=== PATIENT | male | born 1955 | race Caucasian/White ===

== ENCOUNTER → 2021-09-12 12:03 | Outpatient (BNVA) | payer SELFPAY | PROVIDERS: PCP Internal Medicine | DX: Z20.822 Contact with and (suspected) exposure to COVID-19 (principal) | CPT/HCPCS: 36415; C9803 ==

== ENCOUNTER 2022-01-02 12:10 | Outpatient (REF) | payer OTHER, SELFPAY ==
--- NOTE | ~2022-01-02 | XR_ITS ---
EXAMINATION: XR LUMBOSACRAL SPINE CLINICAL INFORMATION: Radiculopathy COMPARISON: None TECHNIQUE: Three views of the lumbosacral spine. FINDINGS: Bone alignment is normal. No fracture or dislocation is seen. There may be a limbus variant or spondylosis superior endplate of the L4 vertebral body. Disc spaces are normal. There is lower lumbar spine facet arthritis. XR/XR lumbar spine 2-3V IMPRESSION: Lower lumbar spine facet arthritis.
== END 2022-01-02 12:11 | disposition home or self-care (01) ==
LOC: HO.XRAY 12:10
PROVIDERS: Visit Provider Physical Medicine & Rehabilitation
DX: M54.16 Radiculopathy, lumbar region (principal)
CPT/HCPCS: 72100

== ENCOUNTER 2022-01-05 15:10 | Outpatient (REF) | payer OTHER, SELFPAY ==
--- NOTE | ~2022-01-05 | MR_ITS ---
EXAMINATION: MR LUMBAR SPINE WITHOUT CONTRAST CLINICAL INFORMATION: 67-year-old with complaints of low back and left leg pain. Lumbar radiculopathy. COMPARISON: None TECHNIQUE: MRI of the lumbar spine was obtained using routine sequences without contrast. FINDINGS: CORONAL ALIGNMENT: Normal. SAGITTAL ALIGNMENT: 3 mm of grade 1 spondylolisthesis at L5-S1. Possible subtle pars defect on the right. Normal lumbar spine alignment throughout the remainder of the lumbar spine with normal lumbar lordotic curvature. LUMBOSACRAL JUNCTION: Normal. 5 nonrib-bearing lumbar-type vertebral bodies. VERTEBRAL BODIES: Normal height. Limbus vertebra noted at the anterosuperior corner of L4. DISC SPACES AND ENDPLATES: The intervertebral disc space heights are relatively well maintained. Mild multilevel disc desiccation noted with minor spondylosis at multiple levels. Endplates appear largely intact. SPINAL CANAL: No abnormal developmental findings. BONE MARROW: No significant marrow-replacing process or bone marrow edema. 2 cm benign vertebral hemangioma in the L1 vertebral body noted and a 1.5 cm benign vertebral hemangioma in the L5 vertebral body. Type II degenerative marrow signal changes along the superior endplate of S1 and in the anterosuperior corner of L5. Minor type II marrow signal changes noted along the endplates anteriorly at L1-L2 and T12-L1. CONUS MEDULLARIS: Terminates at L1. Morphology and signal is normal. INTRADURAL NERVE ROOTS: Within normal limits. L5-S1: Unroofing of the posterior disc margin consistent with mild grade 1 spondylolisthesis. Broad-based, shallow left paramedian to subarticular/foraminal disc protrusion with annular fissuring noted with slight flattening of the dural sac asymmetric to the left without definite neural impingement. [id number]-[id number] facet arthropathy noted left more than right with a small left-sided facet joint effusion without significant spinal canal stenosis. Mild craniocaudal neural foraminal narrowing noted on the left without neural impingement. Possible subtle pars defect on the right. L4-L5: Diffuse disc bulging is noted with subtle bilateral posterolateral annular fissuring and mild flattening the ventral dural sac, with [id number]-mh-flatdigm ligamentum flavum thickening and [id number] bilateral facet arthropathy with a prominent dorsal epidural fat pad. No significant central spinal canal stenosis. Mild left subarticular recess narrowing noted and moderate left-sided neural foraminal stenosis, with facet spurring abutting the exiting left L4 nerve root. There is mild right-sided neural foraminal stenosis. L3-L4: Mild disc bulging is noted, with mild flattening of the ventral dural sac. [id number]-ib-mrhiuwiz facet arthropathy noted right more than left with a degenerative subchondral cyst within the superior articulating facet of the right facet joint and a prominent dorsal epidural fat pad without significant spinal canal stenosis. No significant neural foraminal stenosis. L2-L3: Mild posterolateral disc protrusions bilaterally encroaching on the inferior neural foramina with underlying minor disc bulging and slight flattening the ventral dural sac. Ligamentum flavum thickening noted with moderate bilateral facet arthropathy and a prominent dorsal epidural fat pad are noted, with a 4 mm probable synovial cyst along the medial aspect of the left facet joint with moderate encroachment on the left subarticular zone and slight impingement on the left lateral dural sac at this level without significant central spinal canal stenosis. No significant neural foraminal stenosis. L1-L2: No significant disc bulge or herniation. Mild bilateral facet arthrosis. No significant canal or neural foraminal stenosis. PARASPINAL/RETROPERITONEAL: Multilevel interspinous ligament degeneration is noted. Otherwise the paravertebral soft tissues appear unremarkable. MR/MR lumbar spine wo con IMPRESSION: 1. Grade 1 spondylolisthesis at L3-L4 with a possible subtle pars defect on the right at this level with bilateral facet arthropathy and left posterolateral disc protrusion with annular fissuring without significant canal or neural foraminal stenosis and no definite neural impingement. 2. Disc bulging, annular fissuring and posterior element hypertrophic degenerative changes at L4-L5 with mild left subarticular recess narrowing, moderate left-sided and mild right-sided neural foraminal stenosis with facet spurring abutting the exiting left L4 nerve root. 3. Mild disc bulging and [id number]-us-cpypxfat facet arthrosis at L3-L4 and bilateral posterolateral disc protrusions at L2-L3 with facet arthropathy and a probable small synovial cyst along the medial aspect of the left facet joint encroaching on the left subarticular zone at this level. 4. Multilevel interspinous ligament degeneration, most apparent at the levels between L2-L3 and L4-L5 inclusive.
== END 2022-01-05 15:11 | disposition home or self-care (01) ==
LOC: HO.MRI 15:10
PROVIDERS: Visit Provider Physical Medicine & Rehabilitation
DX: M54.16 Radiculopathy, lumbar region (principal)
CPT/HCPCS: 72148